=== PATIENT | female | born 1935 | race Two or more races ===

== ENCOUNTER → 2017-07-26 | Outpatient (CLI) | payer OTHER ==
[~2017-07-26] MED LIST: ENALAPRIL MALEA20 MG
== END | disposition home or self-care (01) ==
LOC: LAB 10:44
DX: N39.0 Urinary tract infection, site not specified (principal); R82.79 Other abnormal findings on microbiological examination of urine; R63.6 Underweight; K57.30 Diverticulosis of large intestine without perforation or abscess without bleeding; M70.50 Other bursitis of knee, unspecified knee; G62.89 Other specified polyneuropathies; E11.51 Type 2 diabetes mellitus with diabetic peripheral angiopathy without gangrene; E11.65 Type 2 diabetes mellitus with hyperglycemia; I10 Essential (primary) hypertension; E03.8 Other specified hypothyroidism; M15.8 Other polyosteoarthritis; M81.0 Age-related osteoporosis without current pathological fracture

== ENCOUNTER 2017-11-20 11:27 | Outpatient (CLI) | payer OTHER | END 2017-11-20 11:36 | disposition home or self-care (01) | LOC: LAB 11:27 | DX: R63.6 Underweight (principal); K57.30 Diverticulosis of large intestine without perforation or abscess without bleeding; M70.50 Other bursitis of knee, unspecified knee; G62.89 Other specified polyneuropathies; E11.9 Type 2 diabetes mellitus without complications; I10 Essential (primary) hypertension; E03.8 Other specified hypothyroidism; M15.8 Other polyosteoarthritis; M81.8 Other osteoporosis without current pathological fracture; Z12.11 Encounter for screening for malignant neoplasm of colon; R82.79 Other abnormal findings on microbiological examination of urine ==

== ENCOUNTER 2018-08-14 13:36 | Outpatient (CLI) | payer OTHER | END 2018-08-14 13:42 | disposition home or self-care (01) | LOC: LAB 13:36 | DX: N39.0 Urinary tract infection, site not specified (principal); B96.29 Other Escherichia coli [E. coli] as the cause of diseases classified elsewhere ==

== ENCOUNTER 2018-10-07 08:00 | Outpatient (CLI) | payer OTHER | END 2018-10-07 08:05 | disposition home or self-care (01) | LOC: TOM 08:00 | DX: N39.0 Urinary tract infection, site not specified (principal); N32.1 Vesicointestinal fistula ==

== ENCOUNTER 2019-01-02 13:08 | Outpatient (CLI) | payer OTHER | END 2019-01-02 15:00 | disposition home or self-care (01) | LOC: LAB 13:08 | DX: E11.69 Type 2 diabetes mellitus with other specified complication (principal); G62.89 Other specified polyneuropathies; N39.0 Urinary tract infection, site not specified; I11.9 Hypertensive heart disease without heart failure; M06.4 Inflammatory polyarthropathy ==

== ENCOUNTER 2019-02-04 16:00 | Outpatient (CLI) | payer OTHER | END 2019-02-04 16:07 | disposition home or self-care (01) | LOC: LAB 16:00 | DX: N39.0 Urinary tract infection, site not specified (principal); B96.29 Other Escherichia coli [E. coli] as the cause of diseases classified elsewhere ==

== ENCOUNTER 2020-07-23 09:59 | Outpatient (CLI) | payer OTHER | END 2020-07-23 10:01 | disposition home or self-care (01) | LOC: LAB 09:59 | PROVIDERS: ATTEND Specialist | DX: E11.69 Type 2 diabetes mellitus with other specified complication (principal); E03.8 Other specified hypothyroidism; Z12.11 Encounter for screening for malignant neoplasm of colon; E78.5 Hyperlipidemia, unspecified ==

== ENCOUNTER 2021-02-05 15:26 | Emergency (ER) | payer OTHER ==
[~2021-02-05] VITALS: Ht 152.4 cm; Wt 64.9 kg
[2021-02-05] MEDS ORDERED: SYNTHROID88 MCG (15:36)
[2021-02-05] MEDS ORDERED: CALTRATE 600 +1 EACH (15:36)
[2021-02-05] MEDS ORDERED: GLIMEPIRIDE2 M1 (15:36)
[2021-02-05] MEDS ORDERED: JANUMET 50-1,01 EACH (15:36)
[2021-02-05] MEDS ORDERED: KETO10TA2 (15:37)
== END 2021-02-05 20:08 | disposition home or self-care (01) ==
LOC: ER 15:26
DX: R53.81 Other malaise (principal); E86.0 Dehydration

== ENCOUNTER 2021-03-29 08:00 | Outpatient (CLI) | payer OTHER ==
[~2021-03-29 08:00] MED LIST changes: +CALTRATE 600 +1 EACH; +GLIMEPIRIDE2 M1; +JANUMET 50-1,01 EACH; +KETO10TA2; +SYNTHROID88 MCG
== END 2021-03-29 08:30 | disposition home or self-care (01) ==
LOC: PPH VACUNA 08:00
PROVIDERS: ATTEND Emergency Medicine Pediatric Emergency Medicine
DX: Z23 Encounter for immunization (principal)

== ENCOUNTER 2021-06-22 12:05 | Outpatient (CLI) | payer OTHER | END 2021-06-22 12:06 | disposition home or self-care (01) | LOC: TOM 12:05 | PROVIDERS: ATTEND Specialist | DX: R51.9 Headache, unspecified (principal) ==

== ENCOUNTER 2021-09-08 14:20 | Outpatient (CLI) | payer OTHER | END 2021-09-08 14:30 | disposition home or self-care (01) | LOC: PPH VACUNA 14:20 | PROVIDERS: ATTEND Emergency Medicine Pediatric Emergency Medicine | DX: Z23 Encounter for immunization (principal) ==

== ENCOUNTER 2021-09-10 10:18 | Outpatient (CLI) | payer OTHER | END 2021-09-10 10:23 | disposition home or self-care (01) | LOC: LAB 10:18 | PROVIDERS: ATTEND Specialist | DX: E11.69 Type 2 diabetes mellitus with other specified complication (principal); E03.8 Other specified hypothyroidism; N25.81 Secondary hyperparathyroidism of renal origin; R19.5 Other fecal abnormalities; D64.89 Other specified anemias; N39.9 Disorder of urinary system, unspecified; E11.21 Type 2 diabetes mellitus with diabetic nephropathy ==

== ENCOUNTER → 2022-06-28 09:21 | Outpatient (CLI) | payer OTHER | END | disposition home or self-care (01) | LOC: LAB 09:21 | PROVIDERS: ATTEND Specialist | DX: J45.991 Cough variant asthma (principal); D64.89 Other specified anemias; N39.9 Disorder of urinary system, unspecified; E11.21 Type 2 diabetes mellitus with diabetic nephropathy; E03.8 Other specified hypothyroidism; N25.81 Secondary hyperparathyroidism of renal origin; E11.69 Type 2 diabetes mellitus with other specified complication; Z13.220 Encounter for screening for lipoid disorders ==

== ENCOUNTER 2022-11-30 17:11 | Inpatient (IN) | payer OTHER ==
[~2022-11-30] VITALS: Ht 5.1 cm; Wt 59.0 kg
== END 2022-12-06 21:29 | disposition home or self-care (01) | DRG 689 ==
LOC: ER 17:11 → MEDI 22:09 → MEDJ 12-01 11:05
PROVIDERS: General Practice; Internal Medicine Infectious Disease; ADMIT Specialist; ATTEND Specialist
PROC: BW21ZZZ Computerized Tomography (CT Scan) of Abdomen and Pelvis (ICD-10-PCS; 2022-11-30)
PROC: XW033E5 Introduction of Remdesivir Anti-infective into Peripheral Vein, Percutaneous Approach, New Technology Group 5 (ICD-10-PCS; principal; 2022-12-03)
PROC: 8E0ZXY6 Isolation (ICD-10-PCS; 2022-12-05)
DX: N39.0 Urinary tract infection, site not specified (principal); A41.9 Sepsis, unspecified organism; U07.1 COVID-19; N17.9 Acute kidney failure, unspecified; B96.20 Unspecified Escherichia coli [E. coli] as the cause of diseases classified elsewhere; E03.9 Hypothyroidism, unspecified; I10 Essential (primary) hypertension; E11.9 Type 2 diabetes mellitus without complications; Z79.4 Long term (current) use of insulin

== ENCOUNTER 2024-02-18 10:42 | Emergency (ER) | payer OTHER ==
[~2024-02-18] VITALS: Ht 154.9 cm; Wt 57.6 kg
== END 2024-02-18 14:13 | disposition home or self-care (01) ==
LOC: ER 10:42
DX: R53.81 Other malaise (principal); J10.1 Influenza due to other identified influenza virus with other respiratory manifestations; Z20.822 Contact with and (suspected) exposure to COVID-19

== ENCOUNTER 2024-02-29 13:42 | Emergency (ER) | payer OTHER ==
[~2024-02-29] VITALS: Ht 157.5 cm; Wt 59.0 kg
[2024-02-29] MEDS ORDERED: TRIJARDY XR 251 EACH PO (13:56)
== END 2024-02-29 14:44 | disposition home or self-care (01) ==
LOC: ER 13:44 → EDBD 13:44 → ER 13:44
DX: B34.9 Viral infection, unspecified (principal); J10.1 Influenza due to other identified influenza virus with other respiratory manifestations; R53.81 Other malaise; I10 Essential (primary) hypertension; E11.9 Type 2 diabetes mellitus without complications; Z79.84 Long term (current) use of oral hypoglycemic drugs